=== PATIENT | female | born 2000 | race Caucasian/White ===

== ENCOUNTER 2022-11-06 07:30 | Inpatient (IN) | payer BC ==
[2022-11-10] MEDS ORDERED: Celecoxib 200 MG Cap PO ONE (05:30)
[2022-11-10] MEDS ORDERED: Scopolamine 1.5 MG Transdermal Patch TRDERM ONE (05:30)
[2022-11-10 06:02] LABS: HEMATOCRIT 35.6 % (34.3-46.0); HEMOGLOBIN 11.9 g/dL (11.2-15.5); MEAN CORPUSCULAR HEMOGLOBIN 30.1 pg (31.6-35.5); MEAN CORPUSCULAR HGB CONC 33.4 g/dL (31.6-35.5); MEAN CORPUSCULAR VOLUME 89.9 fL (81.4-99.0); RED BLOOD CELL COUNT 3.96 M/uL (3.77-5.24); WHITE BLOOD CELL COUNT,WBC 9.6 K/uL (3.2-11.0)
[2022-11-10 06:30] LABS: ALANINE AMINOTRANSFERASE,ALT 24 U/L (12-78); ALBUMIN 3.3 g/dL (3.4-5.0); ALKALINE PHOSPHATASE 71 U/L (46-116); ASPARTATE AMNIOTRANSFERASE,AST 18 U/L (15-37); BILIRUBIN TOTAL 0.5 mg/dL (0.2-1.0); BLOOD UREA NITROGEN,BUN 9 mg/dL (7-18); CALCIUM 8.2 mg/dL (8.5-10.1); CARBON DIOXIDE,CO2 27 mmol/L (21-32); CHLORIDE,CL 103 mmol/L (100-108); CREATININE 0.7 mg/dL (0.6-1.0); EST CRCL DRUG DOSING (CG) 126.09 mL/min; ESTIMATED GFR 125 mL/min (>60); GLUCOSE RANDOM 89 mg/dL (74-106); MAGNESIUM 1.7 mg/dL (1.8-2.4); PHOSPHORUS 4.2 mg/dL (2.5-4.9); POTASSIUM,K 3.6 mmol/L (3.6-5.2); PROTEIN TOTAL,TP 6.5 g/dL (6.4-8.2); SODIUM,NA 138 mmol/L (140-148)
[2022-11-10 06:32] LABS: ANION GAP 11.6 mmol/L (5.0-14.0)
[2022-11-10] MEDS: Dextrose 5%-Lactated Ringers 1,000 ML IV SCH ×3 (06:56→23:21)
[2022-11-10] MEDS ORDERED: fentaNYL 250 MCG/5 ML SDV ONE ×2 (07:02→07:47)
[2022-11-10] MEDS ORDERED: Rocuronium 50 MG/5 ML Vial ONE (07:03)
[2022-11-10] MEDS ORDERED: Ondansetron 4 MG/2 ML SDV ONE (07:03)
[2022-11-10] MEDS ORDERED: Glycopyrrolate 0.2 MG/ML 5 ML MDV ONE (07:03)
[2022-11-10] MEDS ORDERED: Succinylcholine 200 MG/10 ML MDV ONE (07:03)
[2022-11-10] MEDS ORDERED: Dexamethasone 4 MG/ML SDV ONE (07:03)
[2022-11-10] MEDS ORDERED: Neostigmine Methylsulfate 1 MG/ML 5 ML Syringe ONE (07:03)
[2022-11-10] MEDS ORDERED: Propofol 200 MG/20 ML SDV ONE (07:03)
[2022-11-10] MEDS ORDERED: cefOXitin 2 GM in Sodium Chloride 0.9% 50 ML IV ONE (07:15)
[2022-11-10] MEDS ORDERED: Ketamine 20 MG in Sodium Chloride 0.9% 19.8 ML IV SCH (07:30)
[2022-11-10] MEDS ORDERED: Ketamine 500 MG/5 ML MDV IV SCH (07:30)
[2022-11-10] MEDS: cefOXitin 2 GM Vial ONE ×2 (08:00→08:40)
[2022-11-10] MEDS ORDERED: Labetalol 20 MG/4 ML Syringe ONE (08:20)
[2022-11-10] MEDS ORDERED: Non-Formulary Medication 1 Each IV ONE (09:59)
[2022-11-10] MEDS ORDERED: Cyclobenzaprine 10 MG Tab PO PRN (10:42)
[2022-11-10] MEDS ORDERED: Ondansetron 4 MG/2 ML SDV IVPUSH PRN (11:00)
[2022-11-10] MEDS ORDERED: oxyCODONE 5 MG Tab PO PRN (11:00)
[2022-11-10] MEDS ORDERED: Metoclopramide 10 MG/2 ML SDV IVPUSH PRN (11:00)
[2022-11-10] MEDS ORDERED: traMADol 50 MG Tab PO PRN (11:00)
[2022-11-10] MEDS ORDERED: Labetalol 20 MG/4 ML Syringe IVPUSH PRN (11:00)
[2022-11-10] MEDS ORDERED: hydrOXYzine HCl 50 MG/ML SDV IM PRN (11:00)
[2022-11-10] MEDS ORDERED: HYDROmorphone 0.5 MG/0.5 ML Syringe IVPUSH PRN (11:00)
[2022-11-10] MEDS ORDERED: Acetaminophen 500 MG Tab PO PRN (11:00)
[2022-11-10] MEDS ORDERED: diphenhydrAMINE 50 MG/ML SDV IVPUSH PRN (11:00)
[2022-11-10] MEDS ORDERED: HYDROmorphone 1 MG/ML Syringe IV PRN (11:00)
[2022-11-10] MEDS ORDERED: Pantoprazole 40 MG Vial IVPUSH SCH (11:00)
[2022-11-10] MEDS: Acetaminophen 500 MG Tab PO SCH ×2 (14:36→21:14)
[2022-11-10] MEDS: cefOXitin 2 GM in Sodium Chloride 0.9% 50 ML IV SCH ×2 (14:49→19:37)
[2022-11-10] MEDS: MVI, Adult with Vitamin K 10 ML, Thiamine 200 MG, Zinc/Copper/Manganese/Selenium 1 ML i... IV SCH ×4 (16:54)
[2022-11-10] MEDS: Heparin Sodium 5,000 Units/ML Vial SUBCUT SCH (16:58)
[2022-11-11] MEDS: cefOXitin 2 GM in Sodium Chloride 0.9% 50 ML IV SCH ×3 (02:31→13:07)
[2022-11-11] MEDS ORDERED: Iopamidol 612 MG/ML 50 ML SDV PO ONE (04:06)
[2022-11-11] MEDS: Heparin Sodium 5,000 Units/ML Vial SUBCUT SCH ×2 (04:10→18:20)
[2022-11-11] MEDS: Dextrose 5%-Lactated Ringers 1,000 ML IV SCH ×2 (04:57→15:07)
[2022-11-11] MEDS: Acetaminophen 500 MG Tab PO SCH ×4 (05:00→23:05)
[2022-11-11] MEDS ORDERED: Ondansetron 4 MG Tab.DIS PO PRN (07:01)
[2022-11-11] MEDS ORDERED: hydrOXYzine HCl 25 MG Tab PO PRN (07:02)
[2022-11-11] MEDS: Amphetamine/Dextroamphetamine Salts 10 MG Tab PO SCH ×2 (07:28→11:17)
[2022-11-11] MEDS: lamoTRIgine 100 MG Tab PO SCH (09:21)
[2022-11-11] MEDS: Pantoprazole 40 MG Delayed-Release Granules 1 Packet PO SCH (09:21)
[2022-11-11] MEDS: fluvoxaMINE 100 MG Tab PO SCH (09:21)
[2022-11-11] MEDS: Celecoxib 200 MG Cap PO SCH ×2 (09:21→21:23)
[2022-11-11] MEDS: SCOPOLAMINE PATCH CHECK TOP SCH (09:22)
[2022-11-11] MEDS: MVI, Adult with Vitamin K 10 ML, Thiamine 200 MG, Zinc/Copper/Manganese/Selenium 1 ML i... IV SCH ×4 (18:20)
[2022-11-12] MEDS: Dextrose 5%-Lactated Ringers 1,000 ML IV SCH (04:16)
[2022-11-12] MEDS: Heparin Sodium 5,000 Units/ML Vial SUBCUT SCH (04:18)
[2022-11-12] MEDS: Acetaminophen 500 MG Tab PO SCH (05:34)
[2022-11-12] MEDS: Amphetamine/Dextroamphetamine Salts 10 MG Tab PO SCH (07:28)
[2022-11-12] MEDS ORDERED: Magnesium Hydroxide 400 MG/5 ML Susp 30 ML Cup PO PRN (08:26)
[2022-11-12] MEDS: Celecoxib 200 MG Cap PO SCH (08:40)
[2022-11-12] MEDS: fluvoxaMINE 100 MG Tab PO SCH (08:40)
[2022-11-12] MEDS: Pantoprazole 40 MG Delayed-Release Granules 1 Packet PO SCH (08:40)
[2022-11-12] MEDS: lamoTRIgine 100 MG Tab PO SCH (08:40)
[2022-11-12] MEDS ORDERED: Cyanocobalamin (Vitamin B12) 1,000 MCG/ML SDV IM ONE (09:00)
[2022-11-12] MEDS: SCOPOLAMINE PATCH CHECK TOP SCH (09:38)
== END 2022-11-12 10:00 | disposition home or self-care (01) | DRG 403 ==
LOC: JP.SDSSCHI 11-10 05:26 → JP.ICU 11-10 09:00
PROVIDERS: ADMIT Surgery; ATTEND Surgery
PROC: 0D164ZA Bypass Stomach to Jejunum, Percutaneous Endoscopic Approach (ICD-10-PCS; principal; 2022-11-10)
PROC: 0FB24ZX Excision of Left Lobe Liver, Percutaneous Endoscopic Approach, Diagnostic (ICD-10-PCS; 2022-11-10)
PROC: 0BQT4ZZ Repair Diaphragm, Percutaneous Endoscopic Approach (ICD-10-PCS; 2022-11-10)
PROC: 0DB64ZZ Excision of Stomach, Percutaneous Endoscopic Approach (ICD-10-PCS; 2022-11-10)
DX: E66.01 Morbid (severe) obesity due to excess calories (principal); K55.059 Acute (reversible) ischemia of intestine, part and extent unspecified; R16.0 Hepatomegaly, not elsewhere classified; K44.9 Diaphragmatic hernia without obstruction or gangrene; M54.50 Low back pain, unspecified; F41.9 Anxiety disorder, unspecified; F32.A Depression, unspecified; E03.9 Hypothyroidism, unspecified; Z98.890 Other specified postprocedural states; Z79.4 Long term (current) use of insulin; Z79.899 Other long term (current) drug therapy; Z87.891 Personal history of nicotine dependence; Z68.43 Body mass index [BMI] 50.0-59.9, adult
CPT/HCPCS: 36415; 74240; 74240-26; 80053; 81025; 83036; 83735; 83880; 84100; 85027; 86850; 86900; 86901; 88307; 88313; A9270-GY; C9113; J0171; J0330; J0694; J1100; J1170; J1644; J2405; J2704; J2710; J2795; J3010; J3411; J3490; J7121; Q9967